=== PATIENT | female | born 2000 | race Caucasian/White ===

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

== ENCOUNTER 2022-04-11 22:09 | Emergency (ER) | payer SELFPAY ==
[~2022-04-11 22:09] MED LIST changes: +IBUPROFEN800 MG PO; +ZOFRAN 4 MG TAB4 MG PO
== END 2022-04-11 23:54 | disposition left against medical advice (07) ==
LOC: ER1 22:09
DX: Z53.21 Procedure and treatment not carried out due to patient leaving prior to being seen by health care provider (principal)
CPT/HCPCS: 93005

== ENCOUNTER → 2022-04-12 | Emergency (ER) | payer OTHER ==
[2022-04-12 12:03] LABS: HEMOGLOBIN 14.3 gm/dl (12.3-15.3); RED BLOOD COUNT 4.63 M/UL (4.00-5.10); WHITE BLOOD COUNT 8.6 K/UL (4.5-11.0)
[2022-04-12 12:31] LABS: BUN/CREATININE RATIO 14 (0-10)
== END | disposition home or self-care (01) ==
LOC: ER1 11:04
PROVIDERS: Physician Assistant
DX: B34.9 Viral infection, unspecified (principal); F17.200 Nicotine dependence, unspecified, uncomplicated; Z20.822 Contact with and (suspected) exposure to COVID-19
CPT/HCPCS: 0240U; 71045; 80053; 81001; 82550; 82553; 83540; 83550; 83735; 84439; 84443; 84484; 84703; 85025; 87086; 93005; 96360; 99284

== ENCOUNTER 2022-04-14 20:18 | Emergency (ER) | payer OTHER ==
[2022-04-14 21:11] LABS: HEMOGLOBIN 14.1 gm/dl (12.3-15.3); RED BLOOD COUNT 4.51 M/UL (4.00-5.10); WHITE BLOOD COUNT 10.5 K/UL (4.5-11.0)
[2022-04-14 21:39] LABS: BUN/CREATININE RATIO 10 (0-10)
== END 2022-04-14 23:07 | disposition home or self-care (01) ==
LOC: ER1 20:18
PROVIDERS: Physician Assistant
DX: R07.2 Precordial pain (principal)
CPT/HCPCS: 71045; 80053; 82550; 82553; 83690; 84484; 85025; 85379; 93005; 99283

== ENCOUNTER → 2022-05-13 | Outpatient (CLI) | payer OTHER | LOC: HEART 5 15:24 | DX: R00.2 Palpitations (principal) ==